=== PATIENT | male | born 1955 | race Caucasian/White ===

== ENCOUNTER 2021-03-19 15:19 | Emergency (ER) | payer OTHER ==
[~2021-03-19] VITALS: Ht 177.8 cm; Wt 75.8 kg
[~2021-03-19 15:19] MED LIST: ADAL40PEN; CIPR500 PO; DOCSEN PO; ERYT.5TO OD; GENT.3OPSA OD; HYDACE5 PO; HYDR1TAB94 PO; IBUHYD PO; LEVFLO500 PO; OXYC10ER; OXYC5; PRED10 PO; Pyridium100 MG PO; SULTRIDS PO; SULTRISS PO; TAMS.4ER PO; Zofran Odt4 MG SL; [UNRECOGNIZED DRUG - OTHER]
[2021-03-19] MEDS ORDERED: DEXA6 PO (16:51)
[2021-03-19] MEDS ORDERED: BENZ100A PO (16:51)
== END 2021-03-19 17:31 | disposition home or self-care (01) ==
LOC: ER 15:19
DX: U07.1 COVID-19 (principal)
CPT/HCPCS: 36415; 96374; 96375; 99282-25; J1885; J2405

== ENCOUNTER 2025-04-24 06:20 | Emergency (ER) | payer MEDICARE, BC ==
[~2025-04-24] VITALS: Ht 177.8 cm; Wt 81.7 kg
[~2025-04-24 06:20] MED LIST changes: +BENZ100A PO; +DEXA6 PO
[2025-04-24 06:40] VITALS: BP 157/104
[2025-04-24 08:13] LABS: Source, Urine Clean Catch
[2025-04-24 08:25] LABS: Bilirubin, Urine Neg (Neg); Color, Urine Brown (P-Yellow); Glucose Qualitative, Urine Neg (Neg); Ketones, Urine Neg (Neg); Leukocyte Esterase, Urine 1+ (Neg); Protein, Urine 2+ (Neg); Specific Gravity, Urine 1.010 (1.003-1.022); Urobilinogen, Urine NORM (Normal)
[2025-04-24 08:34] LABS: Red Blood Cells, Urine TNTC /hpf (0-2)
[2025-04-24] MEDS ORDERED: CEFD300 PO (09:12)
== END 2025-04-24 09:31 | disposition home or self-care (01) ==
LOC: ER 06:20
PROVIDERS: Student in an Organized Health Care Education/Training Program
DX: N39.0 Urinary tract infection, site not specified (principal); R31.9 Hematuria, unspecified; Z79.899 Other long term (current) drug therapy; Z87.891 Personal history of nicotine dependence
CPT/HCPCS: 81001; 87086; 99283